=== PATIENT | male | born 1975 | race Caucasian/White ===

== ENCOUNTER 2020-10-17 07:13 | Emergency (ER) | payer OTHER ==
[2020-10-17 07:48] LABS: BASOPHIL 0.5 % (0-2); EOSINOPHIL 2.4 % (0-5); HCT 35.7 % (42.0-52.0); HGB 12.4 g/dl (13.2-18.0); MCH 31.5 pg (25.0-31.0); MCHC 34.7 g/dL (32.0-36.0); MCV 90.6 fL (78.0-100.0); MONOCYTE 7.3 % (0-12); MPV 9.6 fL (6.0-9.5); NEUTROPHIL 67.3 % (41-80); NRBC 0; PLT 199 K/uL (150-400); RBC 3.94 M/uL (4.70-6.00); RDW 12.8 % (11.5-14.0); WBC 10.8 K/uL (4.0-10.5)
[2020-10-17 07:59] LABS: INR 1.04 (0.9-1.2); PROTHROMBIN TIME 12.9 SECONDS (11.4-13.6); PTT 27.3 SECONDS (22.2-34.7)
[2020-10-17 08:04] LABS: ALBUMIN 3.4 g/dL (3.4-5.0); ALKALINE PHOSHATASE 57 U/L (46-116); ALT 25 U/L (16-63); AST 21 U/L (15-37); BILIRUBIN - TOTAL 0.5 mg/dL (0.2-1.0); BUN 16 mg/dL (7-18); BUN/CREAT RATIO (CALC) 22.5 RATIO; CHLORIDE 105 mmol/L (98-107); CO2 (BICARBONATE) 28 mmol/L (21-32); CREATININE 0.71 mg/dL (0.67-1.17); GLOBULIN (CALCULATION) 3.5 g/dL; GLUCOSE 206 mg/dL (74-106); MAGNESIUM 1.7 mg/dL (1.8-2.4); POTASSIUM 2.8 mmol/L (3.5-5.1); TOTAL PROTEIN 6.9 g/dL (6.4-8.2)
== END 2020-10-17 08:00 | disposition other institution (70) ==
LOC: FER 07:13
PROVIDERS: Emergency Medicine
DX: S02.92XA Unspecified fracture of facial bones, initial encounter for closed fracture (principal); S01.81XA Laceration without foreign body of other part of head, initial encounter; S80.12XA Contusion of left lower leg, initial encounter; S80.11XA Contusion of right lower leg, initial encounter; V44.9XXA Unspecified car occupant injured in collision with heavy transport vehicle or bus in traffic accident, initial encounter; Y92.410 Unspecified street and highway as the place of occurrence of the external cause
CPT/HCPCS: 36415; 71045; 80053; 83735; 85025; 85610; 85730; G0480; J1170; J2405; J7030

== ENCOUNTER 2020-11-21 17:40 | Emergency (ER) | payer OTHER | END 2020-11-21 20:15 | disposition home or self-care (01) | LOC: FER 17:40 | DX: K56.41 Fecal impaction (principal) | CPT/HCPCS: 74018 ==